=== PATIENT | male | born 1995 | race African-American/Black ===

== ENCOUNTER 2022-07-20 10:27 | Emergency (ER) | payer OTHER ==
[~2022-07-20] VITALS: Ht 170.2 cm; Wt 102.3 kg
[2022-07-20] MEDS: PERTUSS(ACELL),DIPH,TET VAC/PF 0.5 ML SYRINGE IM. ONE (13:33)
[2022-07-20 14:47] VITALS: BP 142/89
[2022-07-20] MEDS: ACETAMINOPHEN 325 MG TABLET PO ONE (14:51)
[2022-07-20] MEDS: IBUPROFEN 400 MG TABLET PO ONE (14:51)
[2022-07-20] MEDS ORDERED: AMOX1TAB16 PO (15:17)
== END 2022-07-20 15:36 | disposition home or self-care (01) ==
LOC: EMS 10:33
DX: S02.32XA Fracture of orbital floor, left side, initial encounter for closed fracture (principal); S02.2XXA Fracture of nasal bones, initial encounter for closed fracture; S00.81XA Abrasion of other part of head, initial encounter; Y04.8XXA Assault by other bodily force, initial encounter; Y93.89 Activity, other specified; Y92.89 Other specified places as the place of occurrence of the external cause; Y99.8 Other external cause status
CPT/HCPCS: 70450; 70486; 90471; 90715; 99284

== ENCOUNTER 2023-09-12 17:48 | Emergency (ER) | payer OTHER ==
[~2023-09-12] VITALS: Ht 175.3 cm; Wt 102.3 kg
[~2023-09-12 17:48] MED LIST: AMOX1TAB16 PO
[2023-09-12 17:53] VITALS: TEMP 99
[2023-09-12] MEDS ORDERED: ACETAMINOPHEN 500 MG TABLET PO ONE (19:30)
[2023-09-12] MEDS ORDERED: IBUPROFEN 600 MG TABLET PO ONE (19:30)
[2023-09-12] MEDS ORDERED: IBUP-1492 PO (21:04)
[2023-09-12] MEDS ORDERED: ACET-3385 PO (21:04)
[2023-09-12 21:13] VITALS: BP 128/98; PULSE 71; RESP 17
== END 2023-09-12 21:14 | disposition home or self-care (01) ==
LOC: EMS 17:56
DX: S93.401A Sprain of unspecified ligament of right ankle, initial encounter (principal); X58.XXXA Exposure to other specified factors, initial encounter; Y93.67 Activity, basketball; Y92.89 Other specified places as the place of occurrence of the external cause; Y99.8 Other external cause status
CPT/HCPCS: 99284; 73610-TC; 73630-TC; Z7502; Z7610

== ENCOUNTER 2024-05-20 18:54 | Emergency (ER) | payer MEDICAID, OTHER ==
[~2024-05-20] VITALS: Ht 175.3 cm; Wt 102.3 kg
[~2024-05-20 18:54] MED LIST changes: +ACET-3385 PO; -AMOX1TAB16 PO; +IBUP-1492 PO
[2024-05-20 19:00] VITALS: TEMP 98.1
[2024-05-20 19:15] VITALS: BP 136/75; PULSE 85; RESP 19
[2024-05-20] MEDS ORDERED: IBUP-1554 PO (20:23)
[2024-05-20] MEDS ORDERED: CEPH-558 PO (20:23)
[2024-05-20] MEDS ORDERED: HYDR-4062 PO (20:23)
[2024-05-20] MEDS: IBUPROFEN 600 MG TABLET PO ONE (20:36)
[2024-05-20] MEDS: HYDROCODONE/ACETAMINOPHEN 5-325 MG TABLET PO ONE (20:36)
[2024-05-20] MEDS: CEPHALEXIN MONOHYDRATE 500 MG CAPSULE PO ONE (20:36)
== END 2024-05-20 20:50 | disposition home or self-care (01) ==
LOC: EMS 18:54
DX: K04.7 Periapical abscess without sinus (principal); F17.210 Nicotine dependence, cigarettes, uncomplicated; F12.90 Cannabis use, unspecified, uncomplicated
CPT/HCPCS: 99284; Z7502; Z7610

== ENCOUNTER 2024-07-21 11:03 | Emergency (ER) | payer MEDICAID ==
[~2024-07-21] VITALS: Ht 175.3 cm; Wt 106.8 kg
[~2024-07-21 11:03] MED LIST changes: -ACET-3385 PO; +CEPH-558 PO; +HYDR-4062 PO; -IBUP-1492 PO; +IBUP-1554 PO
[2024-07-21 11:09] VITALS: BP 141/47; PULSE 83; RESP 18; TEMP 98.9; O2SAT 100
[2024-07-21] MEDS: DOXYCYCLINE HYCLATE 100 MG TABLET PO ONE (11:46)
[2024-07-21] MEDS ORDERED: DIPH-1243 PO (12:31)
[2024-07-21] MEDS ORDERED: DOXY-354 PO (12:31)
== END 2024-07-21 12:37 | disposition home or self-care (01) ==
LOC: EMS 11:03
DX: T63.441A Toxic effect of venom of bees, accidental (unintentional), initial encounter (principal); L03.113 Cellulitis of right upper limb; F12.90 Cannabis use, unspecified, uncomplicated; F17.210 Nicotine dependence, cigarettes, uncomplicated
CPT/HCPCS: 99283